=== PATIENT | male | born 1950 | race Caucasian/White ===

== ENCOUNTER 2016-04-13 16:48 | Emergency (ER) | payer OTHER ==
--- NOTE | 2016-04-13 17:46 | RAD ---
Exam: 4 view left knee COMPARISON: None INDICATION: Left knee pain after twisting injury today. FINDINGS: AP, lateral and bilateral AP oblique views of the left knee were obtained. Small joint effusion is present. Alignment is normal. No fracture is identified. There is minor tricompartment osteophyte formation. There is no significant joint space narrowing. IMPRESSION: Small joint effusion, however no acute osseous abnormality is identified in the left knee. Minor osteoarthritis.
== END 2016-04-13 20:03 | disposition home or self-care (01) ==
LOC: ED 16:48
DX: S89.92XA Unspecified injury of left lower leg, initial encounter (principal); W00.1XXA Fall from stairs and steps due to ice and snow, initial encounter; Y92.9 Unspecified place or not applicable